=== PATIENT | female | born 1975 | race Caucasian/White ===

== ENCOUNTER 2016-06-14 21:24 | Outpatient (CLI) | payer OTHER | END 2016-06-14 21:25 | disposition home or self-care (01) | DX: G47.33 Obstructive sleep apnea (adult) (pediatric) (principal); G47.61 Periodic limb movement disorder; Z68.43 Body mass index [BMI] 50.0-59.9, adult ==

== ENCOUNTER 2016-07-17 09:14 | Outpatient (CLI) | payer OTHER | END 2016-07-17 09:15 | disposition home or self-care (01) | DX: G47.33 Obstructive sleep apnea (adult) (pediatric) (principal) ==

== ENCOUNTER 2016-11-16 10:40 | Outpatient (CLI) | payer OTHER | END 2016-11-16 10:41 | disposition home or self-care (01) | LOC: LAB.R 10:40 | PROVIDERS: ATTEND Nurse Practitioner Obstetrics & Gynecology | DX: N76.0 Acute vaginitis (principal) | CPT/HCPCS: 87480; 87510; 87660 ==

== ENCOUNTER 2017-01-09 13:17 | Emergency (ER) | payer OTHER ==
[2017-01-09 13:26] VITALS: BP 146/85
--- NOTE | 2017-01-09 14:32 | XRAY Preliminary Report ---
Exam: XR Foot 3 View LT IMPRESSION: No evidence of fracture or dislocation. [facility] SITE ID: [id number]
--- NOTE | 2017-01-09 14:35 | XRAY Report ---
EXAM: LEFT FOOT RADIOGRAPHY EXAM DATE: 01/09/2017 02:07 PM. CLINICAL HISTORY: Foot injury. COMPARISON: None. TECHNIQUE: 3 views. FINDINGS: Bones: No fracture or focal bony lesion. Joints: No evidence of dislocation. Soft Tissues: No significant soft tissue abnormalities. IMPRESSION: No evidence of fracture or dislocation. [facility] Referring Provider Line: [phone] SITE ID: [id number]
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
[2017-01-09] MEDS ORDERED: IBUPROFEN 400 MG TABLET PO STA (15:12)
[2017-01-09] MEDS ORDERED: LIDOCAINE PATCH 5% TOP STA (15:18)
[2017-01-09] MEDS ORDERED: IBUPROFEN 400 MG TABLET PO ONE (15:23)
[2017-01-09] MEDS ORDERED: LIDOCAINE PATCH 5% TOP ONE (15:26)
== END 2017-01-09 15:44 | disposition home or self-care (01) ==
LOC: ED 13:17
DX: S90.32XA Contusion of left foot, initial encounter (principal); S46.012A Strain of muscle(s) and tendon(s) of the rotator cuff of left shoulder, initial encounter; Y04.8XXA Assault by other bodily force, initial encounter
CPT/HCPCS: 73630; 99283; A9270

== ENCOUNTER 2017-01-31 12:07 | Outpatient (CLI) | payer OTHER ==
--- NOTE | 2017-01-31 18:53 | XRAY Report ---
THREE-VIEW LEFT SHOULDER: 01/31/2017 CLINICAL INDICATION: Loss of range of motion, dull pain. FINDINGS: AP, oblique, scapular Y views of the left shoulder demonstrate mild degenerative changes o f the acromioclavicular joint. There is no evidence of acute fracture or dislocation. No radiopaque foreign body is seen in the soft tissues. IMPRESSION: MILD DEGENERATIVE CHANGES OF THE ACROMIOCLAVICULAR JOINT. JOB #: [id number] EXT JOB #:[id number]
--- NOTE | 2017-01-31 18:54 | XRAY Report ---
THREE-VIEW LEFT SECOND TOE: 01/31/2017 CLINICAL INDICATION: Pain. FINDINGS: AP, lateral, oblique views of the left second toe demonstrate a mildly displaced fracture of the shaft of the proximal phalanx, without evidence of intraarticular extension. No other fractur e is appreciated. The fracture appears subacute to chronic, with callus formation present. Osteoart hritis is seen in the first metatarsophalangeal joint. IMPRESSION: SUBACUTE TO CHRONIC FRACTURE OF THE SHAFT OF THE PROXIMAL PHALANX OF THE LEFT SECOND TOE . JOB #: [id number] EXT JOB #:[id number]
== END 2017-01-31 12:08 | disposition home or self-care (01) ==
LOC: DI 12:07
PROVIDERS: ATTEND Physician Assistant
DX: M25.512 Pain in left shoulder (principal); M79.675 Pain in left toe(s); S90.122A Contusion of left lesser toe(s) without damage to nail, initial encounter; S92.512A Displaced fracture of proximal phalanx of left lesser toe(s), initial encounter for closed fracture
CPT/HCPCS: 73660